=== PATIENT | female | born 1960 | race Asian ===

== ENCOUNTER 2020-01-06 14:57 | Outpatient (CLI) | payer BC ==
--- NOTE | 2020-01-25 09:33 | MMO ---
Bilateral MAMMO Bilat Screen [facility]. CLINICAL HISTORY: Patient is 59 years old and is seen for screening. The patient has no family history of breast cancer. The patient has no personal history of cancer. VIEWS: The views performed were: bilateral craniocaudal with tomosynthesis and bilateral mediolateral oblique with tomosynthesis. FILMS COMPARED: The present examination has been compared to prior imaging studies performed at [facility] on 04/02/2007, 05/30/2008 and 01/28/2012. This study has been interpreted with the assistance of computer-aided detection. MAMMOGRAM FINDINGS: There are scattered fibroglandular densities. Benign calcifications are noted bilaterally. There are no suspicious masses, suspicious calcifications, or new areas of architectural distortion. IMPRESSION: THERE IS NO MAMMOGRAPHIC EVIDENCE OF MALIGNANCY. A ROUTINE FOLLOW-UP MAMMOGRAM IN 1 YEAR IS RECOMMENDED. THE RESULTS OF THIS EXAM WERE SENT TO THE PATIENT. ACR BI-RADS Category 2 - Benign finding MAMMOGRAPHY NOTE: 1. A negative mammogram report should not delay a biopsy if a dominant of clinically suspicious mass is present. 2. Approximately 10% to 15% of breast cancers are not detected by mammography. 3. Adenosis and dense breasts may obscure an underlying neoplasm. Reported by: ABELARDO ERVIN MD Electonically Signed: [id number]
== END 2020-01-06 14:58 | disposition home or self-care (01) ==
LOC: BICMAMMO 14:57
PROVIDERS: ATTEND Nurse Practitioner Family
DX: Z12.31 Encounter for screening mammogram for malignant neoplasm of breast (principal)
CPT/HCPCS: 77063; 77067

== ENCOUNTER 2024-05-02 20:26 | Emergency (ER) | payer BC ==
[2024-05-02 21:05] LABS: #Basophils 0.03 10x3/uL (0.0-0.2); #Eosinophils Less than 0.03 10x3/uL (0.0-0.7); %Basophils 0.3 % (0.0-1.0); %Eosinophils 0.1 % (0.0-10.0); %Monocytes 3.8 % (0.0-10.0); %Neutrophils 82.5 % (42.0-75.0); Hematocrit 37.2 % (36.0-47.0); Hemoglobin 13.1 g/dL (12.0-16.0); Mean Corpuscular HGB CONC 35.2 g/dL (32.0-36.0); Mean Corpuscular Hemoglobin 32.3 pg (27.0-31.0); Mean Corpuscular Volume 91.6 fL (78.0-98.0); Mean Platelet Volume 8.9 fL (7.4-10.4); Platelet Count 226 10x3/uL (130-400); RBC Distribution Width 11.3 % (11.5-14.5); Red Blood Cell (RBC) Count 4.06 mill/uL (4.20-5.40)
[2024-05-02] MEDS ORDERED: hydrALAZINE 20 MG/ML VIAL ONE (21:14)
[2024-05-02] MEDS ORDERED: Morphine 4 MG/ML VIAL ONE (21:14)
[2024-05-02] MEDS ORDERED: Ondansetron PF 4 MG/2 ML Vial ONE (21:14)
[2024-05-02] MEDS ORDERED: Proparacaine 0.5% Opth 15 ML BOT ONE (21:15)
[2024-05-02 21:18] LABS: ALT (SGPT) 12 U/L (Less than 34); AST (SGOT) 27 U/L (11-34); Alkaline Phosphatase 83 U/L (40-110); Anion Gap 17 mmol/L (10-20); BUN (Urea Nitrogen) 15 mg/dL (9.8-20.1); Bilirubin, Total 0.7 mg/dL (0.3-1.2); Calc. Creatinine Clearance 0 mL/min (70-130); Calcium 9.1 mg/dL (7.8-10.44); Carbon Dioxide 21 mmol/L (23-31); Chloride 96 mmol/L (98-107); Estimated GFR 102; Globulin 3.6 g/dL (2.4-3.5); Glucose 166 mg/dL (80-115); Potassium 3.5 mmol/L (3.5-5.1); Protein, Total 7.6 g/dL (5.8-8.1); Sodium 130 mmol/L (136-145)
[2024-05-02 21:25] LABS: Troponin I Less than 0.010 ng/mL (< 0.028)
[2024-05-02] MEDS ORDERED: Metoclopramide HCl 10 MG (2 mL) VIAL ONE (22:27)
[2024-05-02] MEDS ORDERED: Ketorolac Tromethamine 30 MG (1 mL) VIAL ONE (22:27)
== END 2024-05-02 23:37 | disposition home or self-care (01) ==
LOC: ERS 20:26
DX: R51.9 Headache, unspecified (principal); H40.052 Ocular hypertension, left eye; I10 Essential (primary) hypertension; E78.5 Hyperlipidemia, unspecified; Z79.899 Other long term (current) drug therapy
CPT/HCPCS: 70450; 71045; 80053; 84484; 85025; 93005; 96374; 96375; J0360; J1885; J2270; J2405; J2765